=== PATIENT | male | born 1985 | race Caucasian/White ===

== ENCOUNTER 2016-10-23 13:37 | Emergency (ER) | payer SELFPAY ==
--- NOTE | 2016-10-23 14:41 | EDM.PDOC ---
ED HPI GENERAL MEDICAL PROBLEM - General Chief Complaint: Lower Extremity Injury/Pain Stated Complaint: RIGHT FOOT BROKEN SMALL TOE Time Seen by Provider: 10/23/16 14:34 Source of Information: Reports: Patient, RN Notes Reviewed History Limitations: Reports: No Limitations - History of Present Illness INITIAL COMMENTS - FREE TEXT/NARRATIVE: 31-year-old gentleman presents emergency department today complaint of pain to digit #5 on his right foot this happened after he accidentally kicked a wall, his toe appears to be pointing in a different direction, pain is controlled Right 5-Little toe Pain Score (Numeric/FACES): 3 - Related Data Allergies Allergy/AdvReac Type Severity Reaction Status Date / Time No Known Allergies Allergy Verified 10/23/16 14:02 Home Meds: Home Meds NK [No Known Home Meds] 05/03/14 [History] Past Medical History HEENT History: Reports: Impaired Vision Musculoskeletal History: Reports: Back Pain, Chronic, Fracture Other Musculoskeletal History: fracture of the collar bone/hand/feet Neurological History: Reports: Concussion Psychiatric History: Reports: Addiction Dermatologic History: Reports: Cellulitis Other Dermatologic History: boils - Infectious Disease History Infectious Disease History: Reports: Chicken Pox - Past Surgical History HEENT Surgical History: Reports: Other (See Below) Other HEENT Surgeries/Procedures: vision correction surgery Neurological Surgical History: Reports: Discectomy, Other (See Below) Other Neurological Surgeries/Procedures: back surgery x2 Social & Family History - Tobacco Use Smoking Status *Q: Heavy Tobacco Smoker Years of Tobacco use: 15 Packs/Tins Daily: 1 Used Tobacco, but Quit: No Second Hand Smoke Exposure: Yes - Caffeine Use Caffeine Use: Reports: Soda - Alcohol Use Days Per Week of Alcohol Use: 0 Number of Drinks Per Day: 2 Total Drinks Per Week: 0 - Recreational Drug Use Recreational Drug Use: Yes Drug Use in Last 12 Months: Yes Recreational Drug Type: Reports: Marijuana/Hashish Recreational Drug Use Frequency: Daily Recreational Drug Last Use: 01/27/16 Review of Systems - Review of Systems Review Of Systems: See Below Musculoskeletal: Reports: Other (Digit #5 right foot pain) ED EXAM, GENERAL - Physical Exam Exam: See Below Free Text/Narrative:: Examination the right foot digit #5 is deviated laterally he does have pain to palpation around this area on appreciate any erythema there is no edema pedal pulses 2+ Course - Vital Signs Last Recorded V/S: Last Vital Signs Temp 96.9 F 10/23/16 14:01 Pulse 50 L 10/23/16 14:01 Resp 20 10/23/16 14:01 BP 141/58 H 10/23/16 14:01 Pulse Ox 99 10/23/16 14:01 - Orders/Labs/Meds Orders: Active Orders 24 hr Category Date Time Status Toes Fifth Digit Rt T9 [CR] Stat Exams 10/23/16 15:27 Ordered Meds: Medications Discontinued Medications Generic Name Dose Route Start Last Admin Trade Name Boo PRN Reason Stop Dose Admin Lidocaine HCl 5 ml 10/23/16 15:22 Xylocaine-Mpf 1% INJECT 10/23/16 15:23 ONETIME ONE Departure - Departure Time of Disposition: 15:34 Disposition: Home, Self-Care 01 Condition: Good Clinical Impression: Fracture of proximal phalanx of toe of right foot - Discharge Information Forms: ED Department Discharge Additional Instructions: Use ibuprofen for pain control follow up with podiatry in 2-3 weeks - My Orders Last 24 Hours: My Active Orders 10/23/16 15:27 Toes Fifth Digit Rt T9 [CR] Stat - Assessment/Plan Last 24 Hours: My Active Orders 10/23/16 15:27 Toes Fifth Digit Rt T9 [CR] Stat Plan: Assessment Acuity = acute Site and laterality = proximal fracture 40% displacement digit #5 right foot status post reduction Etiology = secondary to trauma Manifestations = pain Location of injury = Home Lab values = initial x-ray shows the fracture postreduction film shows good resolution Plan Consulted Dr. Wade podiatry who kindly came to the emergency department assessed the patient did the post reduction of the fracture and will follow up with him in clinic Patient was in agreement with the plan all questions were answered, they were instructed to return to the emergency department or call for worsening symptoms. This note was dictated using [employer] voice recognition software please call with any questions.
--- NOTE | 2016-10-23 15:03 | CR ---
Foot Comp Min 3V Rt INDICATION: trauma FINDINGS: Acute, mildly displaced, oblique fracture through the proximal phalanx of the right fifth toe.
[2016-10-23 16:03] VITALS: BP 141/60
--- NOTE | 2016-10-23 20:01 | PN ---
DATE OF SERVICE: 10/23/2016 SUBJECTIVE: The patient is a 31-year-old male, who presented to the clinic with a chief complaint that he accidentally kicked a door this morning. He relates he accidentally did drop a rock and kicked the door with his right foot, and he pointed to his right 5th toe and said it was pointing "sideways," so he wanted to have it looked at. The patient denies having any other problems other than he did drop a rock on his right foot earlier about 10 days ago, and it started to hurt a little worse. He denies having any other problems. The patient relates that the top of the foot still hurts. He pointed near the base of the 3rd and 4th metatarsals in the right foot. PAST MEDICAL HISTORY: The patient denies history of medical problems. REVIEW OF SYSTEMS: ENDOCRINE: The patient denies history of diabetes mellitus. NEUROLOGIC: The patient denies numbness or tingling in the feet. FAMILY HISTORY: The patient denies history of bleeding or clotting disorders. SOCIAL HISTORY: The patient relates he smokes 1 pack cigarettes a day and has done so for about 15 years. Denies alcohol use. OBJECTIVE: GENERAL: The patient is alert and oriented x3 and in no acute distress. VITAL SIGNS: Per chart. VASCULAR: Reveals the pedal pulses are palpable, DP and PT bilaterally. Capillary refill time is less than 3 seconds in digits 1 through 5 bilaterally. DERMATOLOGIC: Reveals that there are no open wounds. No lacerations and no abrasions present in the foot or ankle bilaterally. MUSCULOSKELETAL: Reveals that the right 5th toe is angulated approximately 60 degrees laterally. NEUROLOGIC: Reveals sensation is grossly intact. IMAGING: Radiographic examination showed displaced and angulated fracture of the proximal phalanx of the right 5th toe. Post-reduction films are pending. X-ray is personally reviewed by me. ASSESSMENT: Fracture, right 5th toe. PLAN: The patient is examined and evaluated. The patient was placed in a postop shoe after anesthetizing the right 5th toe with 5 mL of lidocaine 1% plain. The proximal phalanx of the right 5th toe was then reduced and splinted to the right 2nd toe in a yousif splint. The patient was shown how to do this and told to keep it that way. Return to clinic with Podiatry in 2-3 weeks and to take ibuprofen for pain 800 mg one tab p.o. p.c. q.8h. Obdulio Alegria DPM /[id number]
--- NOTE | 2016-10-24 08:54 | CR ---
Toes Fifth Digit Rt T9 INDICATION: post reduction FINDINGS: Comparison from earlier today. Interval reduction of the oblique fracture through the prox imal phalanx of the right fifth digit with near anatomic alignment.
== END 2016-10-23 16:07 | disposition home or self-care (01) ==
LOC: JP.ED 13:37
DX: S92.511A Displaced fracture of proximal phalanx of right lesser toe(s), initial encounter for closed fracture (principal); Z98.890 Other specified postprocedural states; F17.210 Nicotine dependence, cigarettes, uncomplicated; W22.01XA Walked into wall, initial encounter
CPT/HCPCS: 73630-26-RT; 73630-RT; 73660-26-T9; 73660-T9; 99283; 99284

== ENCOUNTER 2017-07-09 05:03 | Emergency (ER) | payer SELFPAY ==
[2017-07-09 10:35] VITALS: BP 101/66
== END 2017-07-09 06:00 | disposition home or self-care (01) ==
LOC: JP.ED 05:03
DX: K04.7 Periapical abscess without sinus (principal)
CPT/HCPCS: 99283

== ENCOUNTER 2018-06-14 19:06 | Emergency (ER) | payer SELFPAY ==
[2018-06-14 19:26] VITALS: BP 129/73
--- NOTE | 2018-06-14 19:38 | EDM.PDOC ---
ED HPI GENERAL MEDICAL PROBLEM - General Chief Complaint: Respiratory Problem Stated Complaint: ILLNESS Time Seen by Provider: 06/14/18 19:20 Source of Information: Reports: Patient, Family History Limitations: Reports: No Limitations - History of Present Illness INITIAL COMMENTS - FREE TEXT/NARRATIVE: 33-year-old male who is been sick for 3 days, cough, headache, generalized body aches persistent fever. He didn't get a flu vaccination. No nausea or vomiting. Despite the persistent cough, he does not feel short of breath. He feels like he 's been "hit by a truck". Onset: Gradual Duration: Day(s): (3 days) Associated Symptoms: Reports: Chest Pain (Pain with coughing), Cough, Fever/ Chills, Headaches, Loss of Appetite, Malaise - Related Data Allergies Allergy/AdvReac Type Severity Reaction Status Date / Time No Known Allergies Allergy Verified 06/14/18 19:17 Home Meds: Home Meds NK [No Known Home Meds] 05/03/14 [History] Past Medical History HEENT History: Reports: Impaired Vision Musculoskeletal History: Reports: Back Pain, Chronic, Fracture Other Musculoskeletal History: fracture of the collar bone/hand/feet Neurological History: Reports: Concussion Psychiatric History: Reports: Addiction Dermatologic History: Reports: Cellulitis Other Dermatologic History: boils - Infectious Disease History Infectious Disease History: Reports: Chicken Pox - Past Surgical History HEENT Surgical History: Reports: Other (See Below) Other HEENT Surgeries/Procedures: vision correction surgery Neurological Surgical History: Reports: Discectomy, Other (See Below) Other Neurological Surgeries/Procedures: back surgery x2 Social & Family History - Tobacco Use Smoking Status *Q: Current Every Day Smoker Years of Tobacco use: 20 Packs/Tins Daily: 1 - Caffeine Use Caffeine Use: Reports: Soda ED ROS GENERAL - Review of Systems Review Of Systems: See Below Constitutional: Reports: Fever, Chills, Malaise HEENT: Reports: Ear Pain, Throat Pain Respiratory: Reports: Cough. Denies: Shortness of Breath Cardiovascular: Reports: Chest Pain GI/Abdominal: Denies: Abdominal Pain, Nausea, Vomiting Musculoskeletal: Reports: Other (Hurts all over) Skin: Reports: No Symptoms Neurological: Reports: Headache ED EXAM, GENERAL - Physical Exam Exam: See Below Exam Limited By: No Limitations General Appearance: Alert, No Apparent Distress (Looks uncomfortable but not distressed) Eye Exam: Bilateral Eye: Normal Inspection Ears: Normal TMs Head: Atraumatic Respiratory/Chest: No Respiratory Distress, Other (Diffuse rhonchi and expiratory wheezes bilaterally) Cardiovascular: Regular Rate, Rhythm Neurological: Alert, Oriented Psychiatric: Normal Affect, Normal Mood Skin Exam: Warm, Dry Course - Vital Signs Last Recorded V/S: Last Vital Signs Temp 101.1 F H 06/14/18 19:24 Pulse 72 06/14/18 19:24 Resp 15 06/14/18 19:24 BP 129/73 06/14/18 19:24 Pulse Ox 94 L 06/14/18 19:24 - Re-Assessments/Exams Free Text/Narrative Re-Assessment/Exam: 06/14/18 19:38 Influenza antigens were obtained. 06/14/18 20:02 Influenza antigens were negative. Patient was sent back for a two-view chest x- ray. 06/14/18 20:23 Chest x-ray appears normal. Patient will be covered for Zithromax for atypical bronchitis, understanding his symptoms may be viral and will run their course over time. He can recheck at any time if worsening despite treatment, or consider rechecking after the antibiotic if he is not improving satisfactorily. Departure - Departure Time of Disposition: 20:29 Disposition: Home, Self-Care 01 Condition: Good Clinical Impression: Bronchitis - Discharge Information Instructions: Acute Bronchitis, Adult, [id number] Referrals: PCP,None [Primary Care Provider] - Forms: ED Department Discharge Care Plan Goals: Rest, fluids, ibuprofen or naproxen will help with aches and pains. Take antibiotic as prescribed and consider rechecking in 4-5 days if not improving satisfactorily. Return sooner if worsening such as difficulty breathing.
--- NOTE | 2018-06-14 20:54 | CRLCR ---
INDICATION: dyspnea CHEST, PA AND LATERAL Upright PA and lateral radiographs of the chest were performed. Comparison: No previous studies are currently available for comparison. The lungs appear clear and there are no pleural effusions. Heart size and pulmonary vasculature appear normal. Visualized bones show no significant findings. IMPRESSION: No acute intrathoracic abnormality identified. TERESO BIGGS MD [facility] Dictated by: Andrea Biggs MD @ 06/14/2018 20:54:39 (Electronically Signed)
== END 2018-06-14 20:30 | disposition home or self-care (01) ==
LOC: JP.ED 19:06
DX: J40 Bronchitis, not specified as acute or chronic (principal); F17.210 Nicotine dependence, cigarettes, uncomplicated
CPT/HCPCS: 71046; 87804; 87804-59; 99284-25

== ENCOUNTER 2022-05-06 13:42 | Emergency (ER) | payer SELFPAY ==
[2022-05-06 14:01] VITALS: BP 119/54; PULSE 51
== END 2022-05-06 14:45 | disposition home or self-care (01) ==
LOC: JP.ED 13:42
DX: S42.022A Displaced fracture of shaft of left clavicle, initial encounter for closed fracture (principal); W18.39XA Other fall on same level, initial encounter
CPT/HCPCS: 73000-26-LT; 73000-LT; 99282; 99284

== ENCOUNTER 2023-04-14 13:54 | Emergency (ER) | payer MEDICAID ==
[2023-04-14 15:12] LABS: CORONAVIRUS COVID-19 NAA NEGATIVE (NEGATIVE); INFLUENZA A NAA NEGATIVE (NEGATIVE); INFLUENZA B NAA NEGATIVE (NEGATIVE); RESPIRATORY SYNCYTIAL VIR NAA NEGATIVE (NEGATIVE)
[2023-04-14] MEDS ORDERED: Ketorolac 30 MG/ML SDV IVPUSH ONE (15:30)
[2023-04-14] MEDS ORDERED: Sodium Chloride 0.9% 1,000 ML IV SCH (15:30)
[2023-04-14 15:41] LABS: BASOPHILS ABSOLUTE AUTO 0.08 K/uL (0.00-0.10); BASOPHILS PERCENT AUTO 0.8 % (0.1-1.3); HEMATOCRIT 41.1 % (38.4-49.7); HEMOGLOBIN 14.7 g/dL (12.9-16.9); LYMPHOCYTES ABSOLUTE AUTO 0.29 K/uL (0.8-3.3); MEAN CORPUSCULAR HEMOGLOBIN 30.2 pg (31.6-35.5); MEAN CORPUSCULAR HGB CONC 35.8 g/dL (31.6-35.5); MEAN CORPUSCULAR VOLUME 84.6 fL (81.4-99.0); MONOCYTES ABSOLUTE AUTO 1.39 K/uL (0.20-0.90); MONOCYTES PERCENT AUTO 14.3 % (3.3-12.6); NEUTROPHILS ABSOLUTE AUTO 7.73 K/uL (1.0-7.6); NEUTROPHILS PERCENT AUTO 79.9 % (40.0-78.1); PLATELET COUNT,PLT 255 K/uL (130-375); RED BLOOD CELL COUNT 4.86 M/uL (4.14-5.76); WHITE BLOOD CELL COUNT,WBC 9.7 K/uL (3.2-11.0)
[2023-04-14 15:54] VITALS: BP 129/57; PULSE 77
[2023-04-14 16:04] LABS: A/G RATIO 1.3 (1.2-2.2); ALANINE AMINOTRANSFERASE,ALT 27 U/L (12-78); ALKALINE PHOSPHATASE 68 U/L (46-116); ASPARTATE AMNIOTRANSFERASE,AST 16 U/L (15-37); BILIRUBIN TOTAL 0.5 mg/dL (0.2-1.0); BLOOD UREA NITROGEN,BUN 19 mg/dL (7-18); CALCIUM 8.6 mg/dL (8.5-10.1); CARBON DIOXIDE,CO2 22 mmol/L (21-32); CHLORIDE,CL 99 mmol/L (100-108); CREATININE 1.3 mg/dL (0.8-1.3); EST CRCL DRUG DOSING (CG) 85.36 mL/min; ESTIMATED GFR 71 mL/min (>60); GLUCOSE RANDOM 105 mg/dL (74-106); POTASSIUM,K 3.8 mmol/L (3.6-5.2); PROTEIN TOTAL,TP 7.2 g/dL (6.4-8.2); SODIUM,NA 133 mmol/L (140-148)
[2023-04-14 16:05] LABS: ANION GAP 15.8 mmol/L (5.0-14.0); TROPONIN I HIGH SENSITIVITY < 4.0 pg/mL (<=60.3)
== END 2023-04-14 17:07 | disposition home or self-care (01) ==
LOC: JP.ED 13:54
DX: J06.9 Acute upper respiratory infection, unspecified (principal); F17.210 Nicotine dependence, cigarettes, uncomplicated; Z20.822 Contact with and (suspected) exposure to COVID-19
CPT/HCPCS: 0241U; 36415; 80053; 84484; 85025; 96361; 96374; 99283; J1885; J7030